=== PATIENT | male | born 1975 | race Caucasian/White ===

== ENCOUNTER 2021-01-04 18:48 | Emergency (ER) | payer MEDICAID ==
[~2021-01-04] VITALS: Ht 182.9 cm; Wt 96.8 kg
[2021-01-04] MEDS ORDERED: ONDANSETRON 2MG/ML, 2ML IVPush ONE (19:30)
[2021-01-04] MEDS ORDERED: MORPHINE SULFATE 4 MG/ML, 1ML IVPush PRN (19:30)
--- NOTE | 2021-01-04 19:33 | NUR ---
throughput rn: Spoke to [facility] regarding transfer of care, transfer center worker Stephanie transferred RN to Dr. Quiles at [facility]. Dr quiles stated they wanted us to work up here. Delonte WHITMAN spoke with Etta as well.
[2021-01-04] MEDS ORDERED: ONDANSETRON 2MG/ML, 2ML ONE (19:41)
[2021-01-04] MEDS ORDERED: MORPHINE SULFATE 4 MG/ML, 1ML ONE (19:41)
--- NOTE | 2021-01-04 19:46 | NUR ---
PT WHEELED TO ROOM 15. PT WITH MULTIPLE SUPERFICIAL INJURIES NOTED ON VISUAL ASSESMENT. PT HAS DEFORMITY TO RIGHT CLAVICULAR AREA, PT HAS OBVIOUS DEFORMITY TO LEFT UPPER FOREARM AND LOWER ARM IS "LOOSE" PER THE PT. PT HAS DEFORMITY TO THE RIGHT FOREARM WELL. PT WITH LARGE ABRASION TO RIGHT HIP AREA MOVING UP TO THORAX. PT WITH MULTIPLE SMALL ABRASIONS TO LEFT AND RIGHT SHOULDER AND ARMS, AND TO LOWER EXTREMITIES BILATERAL. MD TO BEDSIDE. IV STARTED TO RIGHT HAND 16G PIV X1 ATTEMPT, BLOOD DRAWN AND SENT TO LAB. [facility] CALLED FOR POTENTIAL TRANSFER TO HIGHER LEVEL OF CARE ([facility]). PER THE [facility] ER DOC, IF INJURIES APPEAR SUPERFICIAL THEN WORK HIM UP HERE. PT STATES NO LOSS OF CONSCIOUSSNESS.
--- NOTE | 2021-01-04 19:49 | NUR ---
PT TAKEN TO CT SCAN AND XRAYS BY TECH. PT A&OX4. NO EMESIS OR VOMITING AT THIS POINT.
[2021-01-04] MEDS ORDERED: OMNIPAQUE 350 MG/ML, 100ML BOTTLE ONE (20:00)
[2021-01-04] MEDS ORDERED: SODIUM CHLORIDE FLUSH 10ML SYR IVF ONE (20:00)
[2021-01-04 20:06] LABS: BASOPHILS % (AUTO) 1 % (0-1); EOSINOPHILS % (AUTO) 0 % (1-7); LYMPHOCYTES % (AUTO) 10 % (22-44); MEAN CORPUSCULAR HEMOGLOBIN 30.1 pg (27.5-34.5); MEAN CORPUSCULAR HGB CONC 34.1 g/dL (33.2-36.2); MEAN PLATELET VOLUME 8.5 fL (7.4-10.4); MONOCYTES % (AUTO) 7 % (2-9); NEUTROPHILS % (AUTO) 83 % (42-75); PLATELET COUNT 345 x10^3/uL (130-400); RED BLOOD COUNT 5.38 x10^6/uL (4.38-5.82); RED CELL DISTRIBUTION WIDTH 13.1 % (9.4-14.8)
[2021-01-04 20:10] LABS: MD NO
[2021-01-04 20:18] LABS: ANION GAP 9 mmol/L (5-15); CHLORIDE 110 mmol/L (98-107); INTERNATIONAL NORMALIZED RATIO 0.98 (0.93-1.1); PROTHROMBIN TIME 10.5 Seconds (9.6-11.5)
--- NOTE | 2021-01-04 20:18 | NUR ---
PT BACK FROM CT. ON CR MONITOR, AND ARMS TO BE SPLINTED.
[2021-01-04 20:21] LABS: ALANINE AMINOTRANSFERASE 53 U/L (12-78); ALKALINE PHOSPHATASE 63 U/L (45-117); BILIRUBIN,TOTAL 0.8 mg/dL (0.2-1.0); CREATININE 1.16 mg/dL (0.7-1.3); TOTAL PROTEIN 7.8 g/dL (6.4-8.2)
--- NOTE | 2021-01-04 21:00 | NUR ---
REPORT FROM YULISSA FAIR
[2021-01-04] MEDS ORDERED: HYDROmorphone 1 MG/ML, 1ML INJ ONE (21:46)
[2021-01-04] MEDS ORDERED: DIPH,PERTUSS(ACELL),TET VAC/PF 0.5 ML IM-VACC ONE ×2 (21:46→22:00)
[2021-01-04] MEDS ORDERED: HYDROmorphone 1 MG/ML, 1ML INJ IV ONE (22:00)
--- NOTE | 2021-01-04 22:01 | NUR ---
X RAY AT BEDSIDE FOR LLE, LUE SPLINTED BY EMT, SLING APPLIED TO RUE TDAP UPDATED
--- NOTE | 2021-01-04 22:14 | NUR ---
REPORT CALLED TO DONNY FAIR AT [facility] FOR PENDING TRANSFER FOR FURTHER ORTHOPEDIC EVAL
[2021-01-04 22:22] VITALS: BP 138/70
--- NOTE | 2021-01-04 22:27 | NUR ---
THROUGHPUT RN: JOSE LUIS SCHEDULED AND ENROUTE TO GET PT FOR [facility] TRANSFER. RN AT [facility] NOTIFIED AT THIS TIME
== END 2021-01-04 22:38 | disposition home or self-care (01) ==
LOC: ED 19:37
DX: S52.125A Nondisplaced fracture of head of left radius, initial encounter for closed fracture (principal); S52.252A Displaced comminuted fracture of shaft of ulna, left arm, initial encounter for closed fracture; S22.41XA Multiple fractures of ribs, right side, initial encounter for closed fracture; S43.121A Dislocation of right acromioclavicular joint, 100%-200% displacement, initial encounter; S50.12XA Contusion of left forearm, initial encounter; S50.11XA Contusion of right forearm, initial encounter; M54.2 Cervicalgia; V27.4XXA Motorcycle driver injured in collision with fixed or stationary object in traffic accident, initial encounter; Y93.89 Activity, other specified; Y92.410 Unspecified street and highway as the place of occurrence of the external cause; Y99.8 Other external cause status
CPT/HCPCS: 36415; 71260; 72125; 72128; 72131; 73030; 73090; 73564; 74177; 80053; 85025; 85610; 85730; 90471; 90715; 96374; 96375; 99291; 99292; J1170; J2270; J2405; Q9967